=== PATIENT | female | born 1975 | race Caucasian/White ===

== ENCOUNTER 2022-05-30 14:31 | Emergency (ER) | payer OTHER, SELFPAY ==
[2022-05-30 14:36] VITALS: BP 183/97; PULSE 114; RESP 18; TEMP 36.1; O2SAT 99; BMI 26.4
--- NOTE | 2022-05-30 14:42 | DI.RAD.S_ITS ---
PROCEDURE: XR FOOT LT MIN 3V INDICATIONS: foot pain TECHNIQUE: 3 views of the foot were acquired. COMPARISON: None. FINDINGS: Bones: No fractures or dislocations. No suspicious bony lesions. Soft tissues: No tibiotalar joint effusion. Achilles tendon appears normal. IMPRESSION: No acute fracture. No osseous lesion. If symptoms and/or clinical suspicion for pathology persist, further assessment with repeat, or advanced imaging (e.g., CT, MRI, or bone scan) may be helpful for further assessment. Dictated by: Enoc Ramirez M.D. on 05/30/2022 at 14:58 Approved by: Enoc Ramirez M.D. on 05/30/2022 at 15:01
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
[2022-05-30 16:27] VITALS: BP 133/85; PULSE 104; RESP 18; O2SAT 99
== END 2022-05-30 16:30 | disposition home or self-care (01) ==
PROVIDERS: Emergency Provider Physician Assistant
DX: M79.672 Pain in left foot (principal)
CPT/HCPCS: 73630; 99283